=== PATIENT | male | born 1995 | race Hispanic/Latino ===

== ENCOUNTER 2016-03-16 12:05 | Emergency (ER) | payer OTHER ==
[~2016-03-16] VITALS: Ht 190.5 cm; Wt 97.5 kg
[~2016-03-16 12:05] MED LIST: AMOXIL500 MG PO; CLARITIN10 MG PO; FLUTICASON0.05 MG/Ac NASB
[2016-03-16 12:09] VITALS: BP 161/71
[2016-03-16] MEDS ORDERED: MOBIC15 M1 PO (13:03)
[2016-03-16] MEDS ORDERED: CYCLOBENZAPRINE10 M1 PO (13:03)
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
== END 2016-03-16 13:16 ==
LOC: ERH 12:05
DX: S16.1XXA Strain of muscle, fascia and tendon at neck level, initial encounter (principal); S39.012A Strain of muscle, fascia and tendon of lower back, initial encounter; V89.2XXA Person injured in unspecified motor-vehicle accident, traffic, initial encounter

== ENCOUNTER 2016-04-01 20:57 | Emergency (ER) | payer OTHER ==
[~2016-04-01] VITALS: Ht 188 cm; Wt 98.0 kg
[~2016-04-01 20:57] MED LIST changes: +CYCLOBENZAPRINE10 M1 PO; +MOBIC15 M1 PO
--- NOTE | 2016-04-01 22:11 | ED GI/GU/ABDOMINAL COMPLAINT ---
History of Present Illness General Chief Complaint: Abdominal Pain/Flank Pain Stated Complaint: ABD PAIN, +N/V/D Source: patient, family Exam Limitations: no limitations Vital Signs & Intake/Output Vital Signs & Intake/Output Vital Signs Date Time Temp Pulse Resp B/P Pulse O2 O2 Flow FiO2 Ox Delivery Rate 04/01 2132 100.5 97 20 124/68 97 Room Air Allergies Coded Allergies: Penicillins (RASH 04/01/16) Reconcile Medications Fluticasone Propionate 0.05 MG/Actuation SPR 2 SPRAY NASB DAILY NEEDED ALLERGIES (Reported) Loratadine (Claritin) 10 MG TAB 1 TAB PO DAILY ALLERGIES (Reported) Ondansetron (Zofran Odt) 4 MG TAB.RAPDIS 1 TAB SL TID PRN NAUSEA Triage Note: TRIAGE: PT TO ER WITH MOTHER C/C N/V/D, ABD PAIN, GENERALIZED BODY PAIN. ONSET THIS MORNING. MOM STATES "HE CAN'T HOLD ANYTHING DOWN". PT PRESENTED TO TRIAGE WITH WATER BOTTLE, ADVISED TO REMAIN NPO. Triage Nurses Notes Reviewed? yes HPI: Patient woke up this morning with a nosebleed. The nosebleed resolved after approximately 10 minutes. A short while later he became nauseous and began vomiting. He has been unable to keep anything down. Later on in the morning he developed a sharp stabbing pain in his left lower quadrant. The pain is constant. There is no radiation. There are no aggravating or mitigating factors. Patient rates the pain at 4 out of 10. Patient has had diarrhea. Patient was seen by his employment recruiter this afternoon and was instructed to come to the emergency department if he continued to be unable to keep anything down. Patient states that he is still urinating. Positive fevers and chills since this morning. No coughing. Past History Travel History Traveled to [place] past 21 day No Medical History Any Pertinent Medical History? see below for history Neurological: INFANTILE FEBRILE SEIZURE EENT: NONE Cardiovascular: NONE Respiratory: NONE Gastrointestinal: NONE Hepatic: NONE Renal: NONE Musculoskeletal: NONE Psychiatric: NONE Endocrine: NONE Blood Disorders: NONE Cancer(s): NONE NEUROLOGY TECHNICIAN/Reproductive: NONE Surgical History Surgical History: non-contributory Psychosocial History What is your primary language Grenadian Tobacco Use: Never used ETOH Use: occasional use Illicit Drug Use: marijuana Family History Hx Contributory? No Review of Systems Review of Systems Constitutional: Reports: see HPI, chills, fever. EENTM: Reports: see HPI, epistaxis. Respiratory: Reports: no symptoms. Cardiovascular: Reports: no symptoms. GI: Reports: see HPI, abdominal pain, diarrhea, nausea, vomiting. Genitourinary: Reports: no symptoms. Musculoskeletal: Reports: no symptoms. Skin: Reports: no symptoms. Neurological/Psychological: Reports: no symptoms. Hematologic/Endocrine: Reports: no symptoms. Immunologic/Allergic: Reports: no symptoms. All Other Systems: Reviewed and Negative Physical Exam Physical Exam General Appearance: well developed/nourished, alert, awake, anxious, moderate distress Head: atraumatic, normal appearance Eyes: Bilateral: PERRL, EOMI. Ears, Nose, Throat, Mouth: hearing grossly normal, DRY MUCOSA Neck: normal inspection, supple, full range of motion Respiratory: normal breath sounds, chest non-tender, no respiratory distress, lungs clear Cardiovascular: regular rate/rhythm, normal peripheral pulses Gastrointestinal: normal bowel sounds, soft, non-tender, no organomegaly, NO GUARDING OR REBOUND Back: normal inspection, normal range of motion, NO cva TENDERNESS Extremities: normal range of motion Neurologic/Psych: no motor/sensory deficits, awake, alert, oriented x 3, normal mood/affect Skin: intact, normal color, warm/dry Core Measures ACS in differential dx? No Severe Sepsis Present: No Septic Shock Present: No Progress Differential Diagnosis: diverticulitis, gastritis, hepatitis, ischemic bowel, inflamm bowel dis, GASTROENTERITIS Plan of Care: Orders Procedure Date/time Status LIPASE 04/01 2209 Complete COMPREHENSIVE METABOLIC PANEL 04/01 2209 Complete CBC WITHOUT DIFFERENTIAL 04/01 2209 Complete AMYLASE 04/01 2209 Complete Laboratory Tests 04/01/16 2223: Anion Gap 14, Estimated GFR > 60, BUN/Creatinine Ratio 16.7, Glucose 107 H, Calcium 9.7, Total Bilirubin 0.8, AST 23, ALT 39, Alkaline Phosphatase 75, Total Protein 8.0, Albumin 4.9, Globulin 3.1, Albumin/Globulin Ratio 1.6, Amylase 67, Lipase 34, CBC w Diff NO MAN DIFF REQ, RBC 5.12, MCV 90.4, MCH 30.7, RDW 13.6, MPV 8.0, Gran % 92.5 H, Lymphocytes % 4.1 L, Monocytes % 3.4, Eosinophils % 0, Basophils % 0 L, Absolute Granulocytes 10.3 H, Absolute Lymphocytes 0.5 L, Absolute Monocytes 0.4, Absolute Eosinophils 0, Absolute Basophils 0, PUBS MCHC 34.0 Initial ED EKG: none Comments: PT IS FEELING BETTER. NO ABD PAIN, FEELS HUNFRY. ON RE-EXAM: NO RLQ TENDERNESS. Departure Departure Disposition: HOME OR SELF CARE Condition: Stable Clinical Impression Primary Impression: Abdominal pain Secondary Impressions: Diarrhea, Vomiting Referrals: THONY BRANHAM,VINNY Negro (PCP/Family) Additional Instructions: TAKE ZOFRAN NEEDED FOR NAUSEA RETURN IF SYMPTOMS WORSEN OR NEEDED Departure Forms: Customer Survey General Discharge Information Prescriptions: Current Visit Scripts Ondansetron (Zofran Odt) 1 TAB SL TID PRN NAUSEA #10 TAB
[2016-04-01 22:35] LABS: ABSOLUTE BASOPHIL COUNT 0 /CUMM (0.0-0.2); ABSOLUTE EOSINOPHIL COUNT 0 /CUMM (0.0-0.7); ABSOLUTE GRANULOCYTE CT 10.3 /CUMM (1.4-6.5); ABSOLUTE LYMPH COUNT 0.5 /CUMM (1.2-3.4); ABSOLUTE MONOCYTE COUNT 0.4 /CUMM (0.10-0.60); BASOPHIL % 0 % (0.0-2.0); EOSINOPHIL % 0 % (0-5); HEMATOCRIT 46.3 % (42-52); MEAN CORPUSCULAR HGB 30.7 PG (27.0-31.0); MEAN CORPUSCULAR VOLUME 90.4 FL (80.0-94.0); PLATELET COUNT 229 /CUMM (130-400); RBC DISTRIBUTION WIDTH 13.6 % (11.5-14.5); RED BLOOD CELL CT 5.12 /CUMM (4.70-6.10); WHITE BLOOD CELL COUNT 11.2 /CUMM (4.8-10.8)
[2016-04-01 22:54] LABS: GRANULOCYTE % 92.5 % (42.2-75.2)
[2016-04-01] MEDS ORDERED: ZOFRAN ODT4 M1 SL (23:25)
[2016-04-02 00:16] VITALS: BP 137/63
== END 2016-04-02 00:24 ==
LOC: ERH 20:57
PROVIDERS: Emergency Medicine
DX: R10.32 Left lower quadrant pain (principal); R19.7 Diarrhea, unspecified; R11.2 Nausea with vomiting, unspecified
CPT/HCPCS: 96374; 96375; J1885; J2405